=== PATIENT | female | born 1950 | race Caucasian/White ===

== ENCOUNTER 2021-03-12 08:36 | Outpatient (CLI) | payer MEDICARE, SELFPAY ==
--- NOTE | 2021-03-12 19:44 | WPDPFTINT ---
PFT Procedure Performed PFT Procedure Performed Spirometry with Pre/Post Bronchodilator Plethysmography (Lung Vol) Diffusing Cap (DLCO) Flow Vol Loop PFT Interpretation Lung volumes were measured with the body plethysmography method. The severely reduced expiratory reserve volume is due to obesity. The remaining lung volumes are unremarkable. Spirometry showed diminished expiratory flow rates and a diminished FEV1 to FVC ratio of 61%, consistent with obstructive airway disease. Following administration of a bronchodilator there was significant increase in the expiratory flow rates. Lung diffusion capacity is within the normal range. Flow volume loop is consistent with obstructive airway disease. Impression: Moderate obstructive airway disease with significant response to bronchodilators on this testing. Lung diffusion capacity within the normal range.
--- NOTE | 2021-03-12 19:47 | WPDSIXMINUTE ---
Six Minute Walk Procedure Procedure Performed Pulmonary Stress Test (6 min walk) Six Minute Walk this 6 minute walk test was carried out with the patient breathing room air. The pretest oxyhemoglobin saturation was 95%. The patient was able to walk 365 m with no stops during testing. During the walk the oxyhemoglobin saturation remained over 94%. The perceived dyspnea at baseline before testing was 1 and post testing 3 on the Radha scale. Impression: There is no no evidence of oxyhemoglobin desaturation on this testing.
== END 2021-03-12 08:37 | disposition home or self-care (01) ==
PROVIDERS: PCP Physician Assistant; Visit Provider Nurse Practitioner
DX: J44.9 Chronic obstructive pulmonary disease, unspecified (principal)
CPT/HCPCS: 94060; 94618; 94726; 94729